=== PATIENT | male | born 1955 | race Two or more races ===

== ENCOUNTER 2019-01-24 18:25 | Inpatient (IN) | payer MEDICAID ==
[~2019-01-24] VITALS: Ht 175.3 cm; Wt 76.2 kg
[2019-01-24 18:59] LABS: BASOPHILS # (AUTO) 0.1 X10'3 (0-0.2); BASOPHILS % (AUTO) 0.6 % (0-1); EOSINOPHILS # (AUTO) 0.1 X10'3 (0-0.9); EOSINOPHILS % (AUTO) 1.1 % (0-6); HEMATOCRIT 42.7 % (42.0-52.0); HEMOGLOBIN 14.4 g/dl (14.0-17.9); LYMPHOCYTES # (AUTO) 3.2 X10'3 (1.1-4.8); LYMPHOCYTES % (AUTO) 29.1 % (21-51); MEAN CORPUSCULAR HEMOGLOBIN 31.6 PG (27.0-31.0); MEAN CORPUSCULAR HGB CONC 33.7 g/dL (33.0-36.5); MEAN CORPUSCULAR VOLUME 93.8 FL (78-98); MEAN PLATELET VOLUME 9.4 FL (7.4-10.4); MONOCYTES # (AUTO) 0.9 X10'3 (0-0.9); MONOCYTES % (AUTO) 8.1 % (2-12); NEUTROPHILS # (AUTO) 6.8 X10'3 (1.8-7.7); NEUTROPHILS % (AUTO) 61.1 % (42-75); PLATELET COUNT 161 X10'3 (140-440); RED BLOOD COUNT 4.55 X10'6 (4.70-6.10); RED CELL DISTRIBUTION WIDTH 14.3 % (11.5-14.5); WHITE BLOOD COUNT 11.1 X10'3 (4.5-11.0)
[2019-01-24] MEDS ORDERED: LISI-642 PO (19:05)
[2019-01-24] MEDS ORDERED: ATOR40TA PO (19:07)
[2019-01-24] MEDS ORDERED: ASPI81TA52 PO (19:07)
[2019-01-24] MEDS ORDERED: ATEN25TA PO (19:07)
[2019-01-24 19:22] LABS: INR 1.1 INR; PROTHROMBIN TIME 10.7 SECONDS (9.0-12.0)
[2019-01-24 19:23] LABS: PARTIAL THROMBOPLASTIN TIME 28 SECONDS (22-32)
[2019-01-24 19:31] LABS: ALANINE AMINOTRANSFERASE 34 U/L (12-78); ALBUMIN 3.7 G/DL (3.4-5.0); ALBUMIN/GLOBULIN RATIO 1.1 (1.1-1.5); ALKALINE PHOSPHATASE 78 IU/L (46-116); ANION GAP 8 (8-16); ASPARTATE AMINO TRANSFERASE 22 U/L (10-37); BILIRUBIN,TOTAL 0.5 MG/DL (0.1-1.0); BLOOD UREA NITROGEN 21 MG/DL (7-18); BUN/CREATININE RATIO 21.6 (5.4-32.0); CALCIUM 8.8 MG/DL (8.5-10.1); CHLORIDE 108 MMOL/L (99-107); CREATININE 0.97 MG/DL (0.60-1.10); GLUCOSE 97 MG/DL (70-104); SODIUM 143 MMOL/L (135-145); TOTAL CARBON DIOXIDE 27.4 MMOL/L (24-32); TOTAL PROTEIN 7.1 G/DL (6.4-8.2); eGFR 79 ML/MIN
[2019-01-24 19:36] LABS: POTASSIUM 4.2 MMOL/L (3.5-5.1)
[2019-01-24] MEDS ORDERED: nitroGLYCERIN 0.2mg/hour patch TD ONE (19:50)
[2019-01-24] MEDS ORDERED: normal saline 1000ML IV soln IVB ONE (19:50)
[2019-01-24] MEDS ORDERED: iohexol 350MG/ML 100ml bottle IV ONE (20:02)
[2019-01-24 20:12] LABS: MAGNESIUM 1.7 MG/DL (1.5-2.4)
--- NOTE | 2019-01-24 21:43 | NUR ---
PT AWAITING HOSPITALIST. HAS GIRLFRIEND AT BEDSIDE. PT IS PLEASANT AND COOPERATIVE. 3 HR TROP DRAWN. PT DENIES ANY S/S OF ANY CARDIAC ISSUES. STABLE VS.
[2019-01-24] MEDS ORDERED: enoxaparin 100mg/ml syringe SUBCUT ONE (22:55)
--- NOTE | 2019-01-24 23:05 | NUR ---
DR ALVAREZ AT BEDSIDE FOR ADMISSION.
[2019-01-24] MEDS ORDERED: magnesium hydroxide 30ml (MOM) UD suspension PO PRN (23:25)
[2019-01-24] MEDS ORDERED: mag hydrox/Alum hydrox/simeth 30ml oral suspension PO PRN (23:25)
[2019-01-24] MEDS ORDERED: ondansetron/PF 4mg/2ml inj IV PRN (23:25)
[2019-01-24] MEDS ORDERED: HYDROcodone/acetaminophen 5mg/325mg tablet PO PRN (23:25)
[2019-01-25] VITALS (14 sets, daily range): BP systolic 101–143; BP diastolic 47–77
--- NOTE | 2019-01-25 00:45 | NUR ---
PLACED ON HOSPITAL BED. PT TO BE ADMIT HOLD IN ER THROUGH THE NIGHT. GIRLFRIEND REMAINS AT BEDSIDE. STABLE VS. PT DENIES ANY ISSUES. AWAITING IPA.
[2019-01-25] MEDS: metoprolol tartrate 12.5mg (1/2 tablet) PO SCH ×3 (02:14→20:00)
--- NOTE | 2019-01-25 03:22 | NUR ---
PT AWAKENED TO TAKE VS, VSS. PT DENIES ANY SYMPTOMS. GIVEN LOVENOX, METOPRLOL HELD D/T HR 53
--- NOTE | 2019-01-25 04:25 | NUR ---
pt coughing and then sitting up and reporting she "cant breath" dr. cesar at bedside. hr up to 150 azithromycin and fluids stoped per orders from dr. cesar. ordering benedryl and steroids and protonix
[2019-01-25 06:49] LABS: BASOPHILS % (AUTO) 0.5 % (0-1); EOSINOPHILS # (AUTO) 0.2 X10'3 (0-0.9); EOSINOPHILS % (AUTO) 1.9 % (0-6); HEMATOCRIT 41.1 % (42.0-52.0); HEMOGLOBIN 14.2 g/dl (14.0-17.9); LYMPHOCYTES # (AUTO) 2.7 X10'3 (1.1-4.8); LYMPHOCYTES % (AUTO) 32.5 % (21-51); MEAN CORPUSCULAR HEMOGLOBIN 32.4 PG (27.0-31.0); MEAN CORPUSCULAR HGB CONC 34.5 g/dL (33.0-36.5); MEAN CORPUSCULAR VOLUME 93.7 FL (78-98); MEAN PLATELET VOLUME 9.8 FL (7.4-10.4); MONOCYTES # (AUTO) 0.6 X10'3 (0-0.9); MONOCYTES % (AUTO) 7.5 % (2-12); NEUTROPHILS # (AUTO) 4.8 X10'3 (1.8-7.7); NEUTROPHILS % (AUTO) 57.6 % (42-75); PLATELET COUNT 150 X10'3 (140-440); RED BLOOD COUNT 4.38 X10'6 (4.70-6.10); RED CELL DISTRIBUTION WIDTH 14.5 % (11.5-14.5); WHITE BLOOD COUNT 8.4 X10'3 (4.5-11.0)
[2019-01-25 06:51] LABS: ALANINE AMINOTRANSFERASE 27 U/L (12-78); ALBUMIN 3.3 G/DL (3.4-5.0); ALBUMIN/GLOBULIN RATIO 1.1 (1.1-1.5); ALKALINE PHOSPHATASE 72 IU/L (46-116); ANION GAP 7 (8-16); ASPARTATE AMINO TRANSFERASE 17 U/L (10-37); BILIRUBIN,TOTAL 0.3 MG/DL (0.1-1.0); BLOOD UREA NITROGEN 24 MG/DL (7-18); CHLORIDE 111 MMOL/L (99-107); GLUCOSE 99 MG/DL (70-104); POTASSIUM 4.1 MMOL/L (3.5-5.1); SODIUM 145 MMOL/L (135-145); TOTAL CARBON DIOXIDE 27.4 MMOL/L (24-32); TOTAL PROTEIN 6.2 G/DL (6.4-8.2); eGFR 76 ML/MIN
--- NOTE | 2019-01-25 07:30 | NUR ---
REPORT ATTEMPTED, ERIKA PATTERSON TO CALL BACK
--- NOTE | 2019-01-25 07:45 | NUR ---
received pt report from Margie JAMES.
[2019-01-25] MEDS ORDERED: enoxaparin 30mg/0.3ml syringe SUBCUT SCH ×2 (08:00→20:00)
[2019-01-25] MEDS ORDERED: nitroGLYCERIN 0.4mg SUBLingual tab SL PRN (08:05)
[2019-01-25] MEDS ORDERED: regadenoson 0.4mg/5ml syringe IV ONE ×2 (08:05→10:42)
[2019-01-25] MEDS ORDERED: metoprolol tartrate 1mg/ml inj IV PRN (08:05)
[2019-01-25] MEDS ORDERED: aminophylline 250mg/10ml inj. IV PRN (08:05)
--- NOTE | 2019-01-25 08:15 | NUR ---
pt arrived via hospital bed from ER, VSS, pt oriented to room and call light.
--- NOTE | 2019-01-25 10:00 | NUR ---
pt to [facility]uc [facility] for stress test
[2019-01-25] MEDS ORDERED: aminophylline inj. 10 ML IV ONE (10:42)
--- NOTE | 2019-01-25 11:48 | NUR ---
PAGER ID: [phone] MESSAGE: Janes Arzola. rm [id number] is back from [facility]. Would you like to keep him NPO? please advise. Thank you. Donis JAMES
[2019-01-25] MEDS: aspirin 81mg tablet.DR PO SCH (11:55)
[2019-01-25] MEDS: lisinopril 10 MG tablet PO SCH (11:58)
[2019-01-25] MEDS ORDERED: enoxaparin 60mg/0.6ml syringe SUBCUT SCH ×2 (12:00→20:00)
[2019-01-25] MEDS ORDERED: enoxaparin 60mg/0.6ml syringe SUBCUT ONE (12:25)
[2019-01-25] MEDS ORDERED: enoxaparin 30mg/0.3ml syringe SUBCUT ONE (12:25)
--- NOTE | 2019-01-25 12:31 | NUR ---
Student documentation: I have reviewed and agree with all interventions, assessments and medication administration performed and documented by Dede student nurse.
--- NOTE | 2019-01-25 12:59 | NUR ---
Patient in room PCU 3015. I have received report from Donis Gomes RN and had the opportunity to ask questions and assume patient care.
[2019-01-25] MEDS ORDERED: heparin 10,000 units/1 ML INJ IV ONE (13:10)
[2019-01-25] MEDS ORDERED: heparin 10,000 units/1 ML INJ IV PRN (13:10)
[2019-01-25] MEDS ORDERED: albuterol 2.5 MG/3 ML nebule NEB PRN (13:55)
[2019-01-25 14:26] LABS: PARTIAL THROMBOPLASTIN TIME 33 SECONDS (22-32); PROTHROMBIN TIME 10.5 SECONDS (9.0-12.0)
[2019-01-25] MEDS: heparin 25,000 UNIT/250ml bag 250 ML IV SCH ×2 (14:31→21:40)
[2019-01-25 14:39] LABS: CHOL/HDL RATIO 3.1 (0.00-4.99); CHOLESTEROL 125 MG/DL (0-200); HDL CHOLESTEROL 40 MG/DL (35-60); LDL CHOLESTEROL 66 MG/DL (50-100); TRIGLYCERIDES 176 MG/DL (20-135)
--- NOTE | 2019-01-25 17:55 | NUR ---
Student documentation: I have reviewed and agree with all interventions, assessments and medication passes performed and documented by Clarita student nurse.
--- NOTE | 2019-01-25 18:28 | NUR ---
Problems reprioritized. Patient report given, questions answered & plan of care reviewed with Kaylin JAMES.
--- NOTE | 2019-01-25 18:30 | NUR ---
Patient in room PCU 3015. I have received report from Donis JAMES and had the opportunity to ask questions and assume patient care.
[2019-01-25] MEDS: atorvastatin 20mg tablet PO SCH (21:03)
[2019-01-26] VITALS (18 sets, daily range): BP systolic 91–145; BP diastolic 46–67
[2019-01-26 04:07] LABS: BASOPHILS # (AUTO) 0.1 X10'3 (0-0.2); BASOPHILS % (AUTO) 0.6 % (0-1); EOSINOPHILS # (AUTO) 0.2 X10'3 (0-0.9); EOSINOPHILS % (AUTO) 1.9 % (0-6); HEMATOCRIT 43.4 % (42.0-52.0); HEMOGLOBIN 14.6 g/dl (14.0-17.9); LYMPHOCYTES # (AUTO) 3.3 X10'3 (1.1-4.8); LYMPHOCYTES % (AUTO) 37.1 % (21-51); MEAN CORPUSCULAR HEMOGLOBIN 31.5 PG (27.0-31.0); MEAN CORPUSCULAR HGB CONC 33.6 g/dL (33.0-36.5); MEAN CORPUSCULAR VOLUME 93.6 FL (78-98); MEAN PLATELET VOLUME 9.9 FL (7.4-10.4); MONOCYTES # (AUTO) 0.7 X10'3 (0-0.9); MONOCYTES % (AUTO) 7.5 % (2-12); NEUTROPHILS # (AUTO) 4.7 X10'3 (1.8-7.7); NEUTROPHILS % (AUTO) 52.9 % (42-75); PLATELET COUNT 149 X10'3 (140-440); RED BLOOD COUNT 4.64 X10'6 (4.70-6.10); RED CELL DISTRIBUTION WIDTH 14.2 % (11.5-14.5); WHITE BLOOD COUNT 8.9 X10'3 (4.5-11.0)
[2019-01-26 04:16] LABS: ALANINE AMINOTRANSFERASE 25 U/L (12-78); ALBUMIN 3.5 G/DL (3.4-5.0); ALBUMIN/GLOBULIN RATIO 1.2 (1.1-1.5); ALKALINE PHOSPHATASE 71 IU/L (46-116); ANION GAP 8 (8-16); ASPARTATE AMINO TRANSFERASE 16 U/L (10-37); BILIRUBIN,TOTAL 0.6 MG/DL (0.1-1.0); BLOOD UREA NITROGEN 22 MG/DL (7-18); BUN/CREATININE RATIO 24.4 (5.4-32.0); CALCIUM 8.8 MG/DL (8.5-10.1); CHLORIDE 107 MMOL/L (99-107); GLUCOSE 97 MG/DL (70-104); SODIUM 141 MMOL/L (135-145); TOTAL CARBON DIOXIDE 25.8 MMOL/L (24-32); TOTAL PROTEIN 6.4 G/DL (6.4-8.2); eGFR 86 ML/MIN
--- NOTE | 2019-01-26 06:00 | NUR ---
Patient in room PCU 3015. I have received report from ERIKA Ewing and had the opportunity to ask questions and assume patient care. Pt resting, bed is low/locked/SRx2, call light in reach. Pt denies needs at this time.
--- NOTE | 2019-01-26 06:05 | NUR ---
Problems reprioritized. Patient report given, questions answered & plan of care reviewed with Alisa JAMES & Yamile JAMES.
[2019-01-26] MEDS: lisinopril 10 MG tablet PO SCH (07:35)
[2019-01-26] MEDS: aspirin 81mg tablet.DR PO SCH (07:36)
[2019-01-26] MEDS: metoprolol tartrate 12.5mg (1/2 tablet) PO SCH (07:36)
[2019-01-26] MEDS: nicotine 14mg patch - 24hr TD SCH (07:38)
[2019-01-26] MEDS ORDERED: pneumococcal 23-VAL P-sac vacc 25 mcg/0.5ml vial IMVAC ONE (10:00)
[2019-01-26] MEDS: heparin 25,000 UNIT/250ml bag 250 ML IV SCH (10:29)
[2019-01-26] MEDS ORDERED: LIDOcaine/PRILOcaine 5gm cream TP ONE (14:45)
[2019-01-26] MEDS ORDERED: nitroGLYCERIN-Tridil 50MG/D5W 250 ML IV ONE (14:59)
[2019-01-26] MEDS ORDERED: iohexol 350 MG/ML 50ML vial IV ONE (15:00)
[2019-01-26] MEDS ORDERED: LIDOcaine 1% (10mg/ml)w/preservative injection 20ml MDV ONE (15:00)
[2019-01-26] MEDS ORDERED: midazolam 2 mg/2 ml injection ONE (15:00)
[2019-01-26] MEDS ORDERED: iohexol 350MG/ML 100ml bottle IV ONE (15:00)
[2019-01-26] MEDS ORDERED: fentaNYL/PF 50MCG/1 ML 2ML syringe ONE (15:00)
[2019-01-26] MEDS ORDERED: verapamil 2.5 mg/ml inj IV ONE (15:00)
[2019-01-26] MEDS ORDERED: heparin 1,000unit/ml 10ml vial 10 ML ONE (15:00)
--- NOTE | 2019-01-26 15:51 | NUR ---
Pt. transferred off the floor via wheelchair for procedure, in stable condition. Will go to the ACCE unit after procedure
--- NOTE | 2019-01-26 16:13 | NUR ---
Problems reprioritized. Patient report given, questions answered & plan of care reviewed with Iraj JAMES in the ACCE unit. Pt still in procedure.
--- NOTE | 2019-01-26 16:30 | NUR ---
received pt report from Yamile JAMES. all questions answered.
--- NOTE | 2019-01-26 17:00 | NUR ---
pt arrived to [facility] from [facility] via gurney and transferred to hospital bed. VSS, pt oriented to room and call light.
[2019-01-26] MEDS ORDERED: normal saline 1000ml 1,000 ML IV SCH (17:05)
--- NOTE | 2019-01-26 18:05 | NUR ---
Patient in room MED 314. I have received report from Donis and had the opportunity to ask questions and assume patient care.
--- NOTE | 2019-01-26 18:32 | NUR ---
Student documentation: I have reviewed and agree with all interventions, medications passed, assessments performed and documented by Alie MCGOVERN .
--- NOTE | 2019-01-26 18:33 | NUR ---
Problems reprioritized. Patient report given, questions answered & plan of care reviewed with Phu JAMES.
[2019-01-26 19:06] LABS: ISTAT Hct MIX 42 %PCV (42-52); ISTAT O2 SATURATION MIX VENOUS 66 % (60-80); ISTAT SOURCE MIX
[2019-01-26 19:06] LABS: ISTAT HGB ART 14.3 g/dl (14.0-18.0); ISTAT Hct ART 42 %PCV (42-52); ISTAT O2 SATURATION ARTERIAL 95 % (95-98); ISTAT SOURCE ART
[2019-01-26] MEDS: atorvastatin 20mg tablet PO SCH (20:07)
[2019-01-26] MEDS: apixaban 5mg tablet PO SCH (20:07)
[2019-01-27] VITALS: BP 94/57
[2019-01-27 02:00] VITALS: BP 91/42
[2019-01-27 05:18] LABS: BASOPHILS % (AUTO) 0.4 % (0-1); EOSINOPHILS # (AUTO) 0.1 X10'3 (0-0.9); EOSINOPHILS % (AUTO) 1.5 % (0-6); HEMATOCRIT 41.2 % (42.0-52.0); LYMPHOCYTES # (AUTO) 2.8 X10'3 (1.1-4.8); LYMPHOCYTES % (AUTO) 31.8 % (21-51); MEAN CORPUSCULAR HEMOGLOBIN 32.1 PG (27.0-31.0); MEAN CORPUSCULAR VOLUME 94.3 FL (78-98); MEAN PLATELET VOLUME 9.8 FL (7.4-10.4); MONOCYTES # (AUTO) 0.8 X10'3 (0-0.9); NEUTROPHILS # (AUTO) 5.1 X10'3 (1.8-7.7); NEUTROPHILS % (AUTO) 57.3 % (42-75); PLATELET COUNT 131 X10'3 (140-440); RED BLOOD COUNT 4.37 X10'6 (4.70-6.10); RED CELL DISTRIBUTION WIDTH 14.5 % (11.5-14.5); WHITE BLOOD COUNT 8.9 X10'3 (4.5-11.0)
[2019-01-27 05:34] LABS: ALANINE AMINOTRANSFERASE 22 U/L (12-78); ALBUMIN 3.2 G/DL (3.4-5.0); ALBUMIN/GLOBULIN RATIO 1.1 (1.1-1.5); ALKALINE PHOSPHATASE 66 IU/L (46-116); ANION GAP 6 (8-16); ASPARTATE AMINO TRANSFERASE 15 U/L (10-37); BILIRUBIN,TOTAL 0.5 MG/DL (0.1-1.0); BLOOD UREA NITROGEN 18 MG/DL (7-18); BUN/CREATININE RATIO 20.2 (5.4-32.0); CALCIUM 8.3 MG/DL (8.5-10.1); CHLORIDE 108 MMOL/L (99-107); CHOL/HDL RATIO 2.5 (0.00-4.99); CHOLESTEROL 109 MG/DL (0-200); CREATININE 0.89 MG/DL (0.60-1.10); GLUCOSE 91 MG/DL (70-104); HDL CHOLESTEROL 43 MG/DL (35-60); LDL CHOLESTEROL 54 MG/DL (50-100); SODIUM 141 MMOL/L (135-145); TOTAL CARBON DIOXIDE 27.3 MMOL/L (24-32); TOTAL PROTEIN 6.1 G/DL (6.4-8.2); TRIGLYCERIDES 100 MG/DL (20-135); eGFR 87 ML/MIN
[2019-01-27 05:45] VITALS: BP 120/58
--- NOTE | 2019-01-27 06:00 | NUR ---
Problems reprioritized. Patient report given, questions answered & plan of care reviewed with Mendy.
--- NOTE | 2019-01-27 06:00 | NUR ---
Patient in room MED 314. I have received report from ERIKA JEREZ, and had the opportunity to ask questions and assume patient care.
[2019-01-27 07:43] VITALS: BP_SYST 120
[2019-01-27] MEDS: aspirin 81mg tablet.DR PO SCH (07:43)
[2019-01-27] MEDS: apixaban 5mg tablet PO SCH (07:44)
[2019-01-27] MEDS: nicotine 14mg patch - 24hr TD SCH (07:44)
[2019-01-27] MEDS ORDERED: lisinopril 2.5mg tablet PO SCH (08:00)
[2019-01-27] MEDS ORDERED: pneumococcal 23-VAL P-sac vacc 25 mcg/0.5ml vial IMVAC ONE (10:00)
--- NOTE | 2019-01-27 10:25 | NUR ---
PATIENT WANTS TO GO HOME PAGED DR. WRIGHT "RE; TORI IN 307, PATIENT WANTS TO GO HOME TODAY AFTERALL. HEBERT HAS SEEN PATIENT. THANK YOU, CU[facility] CROSS [id number]"
[2019-01-27] MEDS ORDERED: NITR0.4T51 SL (11:17)
== END 2019-01-27 11:50 | disposition home or self-care (01) | DRG 192 ==
LOC: ER 18:26 → ED HOLD 23:21 → EDBEDREQDT 01-25 00:27 → EDBEDREQTM 01-25 00:27 → PCU 3S 01-25 08:29 → MED 3N 01-26 16:50
PROVIDERS: ADMIT Internal Medicine; ATTEND Internal Medicine
PROC: B32T1ZZ Computerized Tomography (CT Scan) of Left Pulmonary Artery using Low Osmolar Contrast (ICD-10-PCS; 2019-01-24)
PROC: B3201ZZ Computerized Tomography (CT Scan) of Thoracic Aorta using Low Osmolar Contrast (ICD-10-PCS; 2019-01-24)
PROC: B32S1ZZ Computerized Tomography (CT Scan) of Right Pulmonary Artery using Low Osmolar Contrast (ICD-10-PCS; 2019-01-24)
PROC: 4A02XM4 Measurement of Cardiac Total Activity, External Approach (ICD-10-PCS; principal; 2019-01-25)
PROC: 3E033HZ Introduction of Radioactive Substance into Peripheral Vein, Percutaneous Approach (ICD-10-PCS; 2019-01-25)
PROC: 4A023N8 Measurement of Cardiac Sampling and Pressure, Bilateral, Percutaneous Approach (ICD-10-PCS; 2019-01-26)
PROC: B2151ZZ Fluoroscopy of Left Heart using Low Osmolar Contrast (ICD-10-PCS; 2019-01-26)
PROC: B2111ZZ Fluoroscopy of Multiple Coronary Arteries using Low Osmolar Contrast (ICD-10-PCS; 2019-01-26)
PROC: B3101ZZ Fluoroscopy of Thoracic Aorta using Low Osmolar Contrast (ICD-10-PCS; 2019-01-26)
DX: I08.0 Rheumatic disorders of both mitral and aortic valves (principal); I75.89 Atheroembolism of other site; I74.09 Other arterial embolism and thrombosis of abdominal aorta; I25.110 Atherosclerotic heart disease of native coronary artery with unstable angina pectoris; E78.5 Hyperlipidemia, unspecified; I70.0 Atherosclerosis of aorta; J44.9 Chronic obstructive pulmonary disease, unspecified; F17.200 Nicotine dependence, unspecified, uncomplicated; I37.1 Nonrheumatic pulmonary valve insufficiency; G89.29 Other chronic pain; I10 Essential (primary) hypertension; M54.9 Dorsalgia, unspecified; R00.1 Bradycardia, unspecified; Z79.82 Long term (current) use of aspirin; Z71.6 Tobacco abuse counseling
CPT/HCPCS: 36415; 71045; 71275; 74174; 78452; 80053; 80061; 82803; 83735; 83880; 84484; 85014; 85025; 85610; 85730; 87070; 90732; 93005; 93017; 93306; 93460; 94760; 96360; 99152; 99153; 99285; A4620; A6257; A9500; C1769; C1894; G0378; J0280; J1644; J1650; J2001; J2250; J3010; J3490; Q9967

== ENCOUNTER 2019-02-19 05:30 | Inpatient (IN) | payer MEDICAID | END 2019-02-24 10:10 | disposition home health service (06) | LOC: MED 3N 02-21 14:00 → PAS IN 05:30 → ICU 2S 10:42 | DX: I35.0 Nonrheumatic aortic (valve) stenosis (principal) ==

== ENCOUNTER 2021-07-18 11:26 | Emergency (ER) | payer MEDICAID ==
[~2021-07-18] VITALS: Ht 175.3 cm; Wt 86.8 kg
[~2021-07-18 11:26] MED LIST: ASPI81TA52 PO; ATOR40TA PO; COL100C PO; LISI10TA27 PO; LOP25T PO; PANT40TA54 PO; SIME125C97 PO
[2021-07-18 12:49] LABS: BASOPHILS % (AUTO) 0.4 % (0-1); EOSINOPHILS # (AUTO) 0.2 X10'3 (0-0.9); EOSINOPHILS % (AUTO) 1.5 % (0-6); HEMATOCRIT 52.7 % (42.0-52.0); LYMPHOCYTES # (AUTO) 2.2 X10'3 (1.1-4.8); LYMPHOCYTES % (AUTO) 20.6 % (21-51); MEAN CORPUSCULAR HEMOGLOBIN 32.9 PG (27.0-31.0); MEAN CORPUSCULAR HGB CONC 34.2 g/dL (33.0-36.5); MEAN CORPUSCULAR VOLUME 96.4 FL (78-98); MEAN PLATELET VOLUME 8.9 FL (7.4-10.4); MONOCYTES # (AUTO) 0.9 X10'3 (0-0.9); NEUTROPHILS # (AUTO) 7.4 X10'3 (1.8-7.7); NEUTROPHILS % (AUTO) 69.5 % (42-75); PLATELET COUNT 170 X10'3 (140-440); RED BLOOD COUNT 5.47 X10'6 (4.70-6.10); RED CELL DISTRIBUTION WIDTH 14.7 % (11.5-14.5); WHITE BLOOD COUNT 10.7 X10'3 (4.5-11.0)
[2021-07-18 13:08] LABS: ALANINE AMINOTRANSFERASE 58 U/L (12-78); ALBUMIN 4.3 G/DL (3.4-5.0); ALBUMIN/GLOBULIN RATIO 1.1 (1.1-1.5); ALKALINE PHOSPHATASE 99 IU/L (46-116); ANION GAP 12 (8-16); ASPARTATE AMINO TRANSFERASE 34 U/L (10-37); BILIRUBIN,TOTAL 0.6 MG/DL (0.1-1.0); BLOOD UREA NITROGEN 17 MG/DL (7-18); BUN/CREATININE RATIO 16.2 (5.4-32.0); CALCIUM 8.9 MG/DL (8.5-10.1); CHLORIDE 105 MMOL/L (99-107); CREATININE 1.05 MG/DL (0.60-1.10); GLUCOSE 110 MG/DL (70-104); LIPASE 66 U/L (73-393); POTASSIUM 4.2 MMOL/L (3.5-5.1); SODIUM 142 MMOL/L (135-145); TOTAL CARBON DIOXIDE 24.9 MMOL/L (24-32); TOTAL PROTEIN 8.3 G/DL (6.4-8.2); eGFR 71 ML/MIN
[2021-07-18 14:18] LABS: CLARITY,URINE CLEAR (Clear); COLOR,URINE YELLOW (Yellow); GLUCOSE, URINE NEGATIVE (Neg); KETONES,URINE NEGATIVE (Neg); LEUKOCYTE ESTERASE ,URINE NEGATIVE (Neg); NITRITES, URINE NEGATIVE (Neg); OCCULT BLOOD,URINE NEGATIVE (Neg); PROTEIN,URINE NEGATIVE (Neg); UROBILINOGEN,URINE 0.2 E.U/dL (0.2-1.0)
[2021-07-18 14:20] LABS: UA COLLECTION TYPE VOIDED
[2021-07-19 01:45] VITALS: BP 168/108
== END 2021-07-19 13:58 | disposition left against medical advice (07) ==
LOC: ER 11:27
DX: N20.0 Calculus of kidney (principal); R07.81 Pleurodynia; I10 Essential (primary) hypertension; Z79.82 Long term (current) use of aspirin; Z79.899 Other long term (current) drug therapy
CPT/HCPCS: 36415; 71046; 74176; 80053; 81003; 83690; 85025; 99285